=== PATIENT | female | born 1950 ===

== ENCOUNTER 2017-12-19 07:06 | Outpatient (CLI) | payer OTHER | END 2017-12-19 17:00 | disposition home or self-care (01) | LOC: TOM 07:06 | DX: K56.50 Intestinal adhesions [bands], unspecified as to partial versus complete obstruction (principal); Q41.9 Congenital absence, atresia and stenosis of small intestine, part unspecified ==

== ENCOUNTER 2017-12-26 10:03 | Outpatient (CLI) | payer OTHER | END 2017-12-26 10:06 | disposition home or self-care (01) | LOC: MAMO-SONO 10:03 | DX: Z12.31 Encounter for screening mammogram for malignant neoplasm of breast (principal); Z87.898 Personal history of other specified conditions; N60.11 Diffuse cystic mastopathy of right breast; N60.12 Diffuse cystic mastopathy of left breast ==

== ENCOUNTER 2019-10-07 05:08 | Day surgery (SDC) | payer OTHER ==
[~2019-10-07 05:08] MED LIST: ALTACE2.5 MG PO; CLONAZEPAM0.5 MG PO; CYMBALTA60 MG PO; METFORMIN HCL500 M3 PO; SYNTHROID125 MCG PO; VITAMIN D3100 MCG PO; ZOCOR40 MG PO
[2019-10-07] MEDS ORDERED: BACTRIM DS TAB1 EACH PO (08:55)
[2019-10-07] MEDS ORDERED: ULTRAM50 MG PO (08:55)
== END 2019-10-07 11:45 | disposition home or self-care (01) ==
LOC: CIR.AMB 05:08 → ADM 13:45 → CIR.AMB 13:45
PROVIDERS: ATTEND Orthopaedic Surgery Sports Medicine
DX: M23.321 Other meniscus derangements, posterior horn of medial meniscus, right knee (principal)